=== PATIENT | male | born 1935 | race Caucasian/White ===

== ENCOUNTER → 2023-08-04 09:57 | Outpatient (REF) | payer OTHER, SELFPAY | LOC: DHCBC MAIN 09:57 | PROVIDERS: ATTENDING PHYSICIAN Internal Medicine; FAMILY PHYSICIAN Internal Medicine | DX: I10 Essential (primary) hypertension (principal); I48.21 Permanent atrial fibrillation; R60.0 Localized edema | CPT/HCPCS: 93306 ==